=== PATIENT | male | born 1995 | race Caucasian/White ===

== ENCOUNTER → 2016-11-20 | Outpatient (CLI) | payer BC ==
--- NOTE | 2016-11-20 08:50 | RAD ---
EXAM DESCRIPTION: XR WRIST 3 OR MORE VIEWS CLINICAL HISTORY: 21 y/o ,M, CLOSED FX OF RIGHT RADIAL STYLOID COMPARISON: November 12, 2016. IMPRESSION: Three views right wrist. Healing nondisplaced mid diaphyseal fracture of the distal radius. The fracture line is less apparent on today's study. No additional fractures noted. Electronically signed by: Blaise Villeda MD 11/20/2016 08:48
== END ==
LOC: RAD 07:59
PROVIDERS: ATTEND Orthopaedic Surgery
DX: S52.514A Nondisplaced fracture of right radial styloid process, initial encounter for closed fracture (principal)

== ENCOUNTER → 2016-12-05 | Outpatient (CLI) | payer BC, SELFPAY ==
--- NOTE | 2016-12-05 08:39 | RAD ---
EXAM DESCRIPTION: XR WRIST 3 OR MORE VIEWSXR WRIST 3 OR MORE VIEWS CLINICAL HISTORY: 21 y/o ,M, CLOSED FX RADIAL STYLOID COMPARISON: November 12 and November 20, 2016. IMPRESSION: Three views right wrist When compared to the prior there is continued decreasing visualization of the nondisplaced distal diaphyseal radial fracture. Continued healing. No new findings. Electronically signed by: Blaise Villeda MD 12/05/2016 08:38
== END ==
LOC: RAD 07:59
PROVIDERS: ATTEND Orthopaedic Surgery
DX: S52.511D Displaced fracture of right radial styloid process, subsequent encounter for closed fracture with routine healing (principal)

== ENCOUNTER → 2016-12-26 | Outpatient (CLI) | payer BC ==
--- NOTE | 2016-12-26 09:13 | RAD ---
EXAM DESCRIPTION: XR WRIST 3 OR MORE VIEWS CLINICAL HISTORY: 21 y/o ,M, CLOSED FX OF RADIAL STYLOID COMPARISON: November 20 and December 05, 2016. IMPRESSION: The distal radial metaphysis fracture line is not visualized on today's study. This is compatible with healing. No additional fractures noted. Electronically signed by: Blaise Villeda MD 12/26/2016 09:11
== END | disposition home or self-care (01) ==
LOC: RAD 07:54
PROVIDERS: ATTEND Orthopaedic Surgery
DX: S52.511D Displaced fracture of right radial styloid process, subsequent encounter for closed fracture with routine healing (principal)

== ENCOUNTER 2017-11-02 10:03 | Emergency (ER) | payer BC ==
[2017-11-02 11:00] VITALS: O2SAT 98
--- NOTE | 2017-11-02 11:06 | ED.PDOC ---
History of Present Illness - General Chief Complaint: Fever Stated Complaint: Fever, congestion, vomiting Time Seen by Provider: 11/02/17 11:04 Source: patient, RN notes reviewed, Vital Signs reviewed, family Exam Limitations: no limitations - History of Present Illness Initial Comments: Patient comes to ER with c/o congestion, sore throat, SHAH, fever, cough and body aches that started last night. 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 Denies: short of breath Cardiology: States: no symptoms reported Gastrointestinal/Abdominal: States: nausea. Denies: abdominal pain, diarrhea, vomiting Musculoskeletal: States: muscle pain Skin: States: no symptoms reported Neurological: States: headache All other Systems: No Change from Baseline Past Medical History (General) - Patient Medical History Hx Stroke: No Hx Congestive Heart Failure: No Hx Diabetes: No Hx MRSA: No Surgical History: tonsillectomy - Vaccination History Hx Influenza Vaccination: Yes Hx Pneumococcal Vaccination: No - Social History Hx Tobacco Use: No Family Medical History - Family History Father Family History: No Known Living Status: Still Living Physical Exam - Physical Exam General Appearance: Alert, Ill Appearing, Well Developed, Well Groomed, Well Hydrated, Well Nourished ENT Exam: hearing grossly normal, TMs normal, pharynx normal, nasal congestion Neck: full range of motion, supple, lymphadenopathy (R), lymphadenopathy (L) Respiratory: lungs clear, normal breath sounds, no respiratory distress, no accessory muscle use Cardiovascular/Chest: regular rate, rhythm, no gallop, no JVD, no murmur Extremity: non-tender, normal inspection Neurologic: alert, normal mood/affect, oriented x 3 Skin Exam: normal color, warm/dry Comments: Vital Signs 11/02/17 10:56 Temperature 100.9 F H Pulse Rate [ 101 H Left Radial] Respiratory 20 Rate Blood Pressure 141/89 [Left Arm] O2 Sat by Pulse 98 Oximetry Progress - Progress Progress: 11/02/17 11:59 Patient has all the symptoms of the flu. Will treat imperically with Tamiflu. Patient and mother agree with plan. - Results/Orders Results/Orders: 11/02/17 11:04 STREP A SCREEN CULTURE Stat Laboratory Results - last 24 hr 11/02/17 11:04 Group A Strep DNA Negative Influenza A&B: Negative Departure - Departure Clinical Impression: Influenza Time of Disposition: 12:00 Disposition: Discharge to Home or Self Care Condition: Good Departure Forms: ED Discharge - Pt. Copy, Patient Portal Self Enrollment Instructions: Influenza Diet: resume usual diet Activity: increase activity as tolerated Referrals: Aris Boggs MD [Primary Care Provider] - 1-2 Weeks Prescriptions: Oseltamivir Capsule [Tamiflu] 75 mg PO BID #10 cap Home Medications: Ambulatory Orders Oseltamivir Capsule [Tamiflu] 75 mg PO BID #10 cap 11/02/17
[2017-11-02 12:18] VITALS: BP 125/65; TEMP 100
== END 2017-11-02 12:15 | disposition home or self-care (01) ==
LOC: ER 10:03
DX: J11.1 Influenza due to unidentified influenza virus with other respiratory manifestations (principal)

== ENCOUNTER → 2018-03-30 | Outpatient (CLI) | payer BC ==
--- NOTE | 2018-03-30 16:19 | US ---
EXAM DESCRIPTION: Venous,Lower Extremity RT CLINICAL HISTORY: PAIN IN RT LEG COMPARISON: None Available. TECHNIQUE: Right lower extremity venous duplex FINDINGS: There is no DVT identified. There is normal color flow observed with good flow augmentation. All deep veins compress normally. IMPRESSION: Negative for DVT Electronically signed by: Amita Gonzales MD 03/30/2018 4:17 PM CDT
== END ==
LOC: GMAB 11:56
PROVIDERS: ATTEND Family Medicine
DX: S87.81XD Crushing injury of right lower leg, subsequent encounter (principal); M79.661 Pain in right lower leg

== ENCOUNTER → 2018-04-01 | Outpatient (CLI) | payer BC | LOC: GMAB 16:36 | PROVIDERS: ATTEND Family Medicine | DX: S81.831D Puncture wound without foreign body, right lower leg, subsequent encounter (principal) ==